=== PATIENT | female | born 2005 | race Caucasian/White ===

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

== ENCOUNTER 2023-01-15 20:04 | Emergency (ER) | payer BC, MEDICAID, SELFPAY ==
[2023-01-15 20:12] VITALS: BP 122/67; PULSE 72; RESP 30; TEMP 36.7; O2SAT 98
--- NOTE | 2023-01-15 20:30 | RT.EKG_ITS ---
APPROVED REPORT Exam: Resting ECG Reason for Exam: L flank, chest pain Patient Location: E HR:84 bpm ECG Measurements Heart Rate 84 AXIS NC 113 P 46 QRSd 96 QRS 19 QT 385 T 31 QTc 455 Conclusion Sinus rhythm...normal P axis, V-rate 60- 99 Low voltage, precordial leads...precordial leads <1.0mV
--- NOTE | 2023-01-15 20:31 | ED.GENADUL_ITS ---
Discharge Plan Disposition Patient Disposition: Home Condition: Improving Discharge Details Clinical Impression: UTI (urinary tract infection) Primary Care Provider: Luna Reyez ED Provider: Jeff Lovell Home Meds and New Rx's Prescriptions: New cephalexin 500 mg capsule 500 mg PO TID 7 Days Qty: 21 0RF Continued albuterol sulfate [ProAir HFA] 8.5 GM HFA aerosol inhaler 2 puff Inhalation Q4H PRN Qty: 2 Rx Instructions: use with spacer, 1 for home and 1 for school (DME) Space Chamber Plus 1 EACH spacer 1 ea Miscellaneous Q4H PRN Qty: 1 Rx Instructions: use with inhaler as needed norgestimate-ethinyl estradiol [Sprintec (28)] 0.25-35 mg-mcg tablet 1 tab PO DAILY Qty: 84 4RF Rx Instructions: Take 1 tablet daily Discharge Instructions Instructions: Urinary Tract Infection in Women (ED) Additional Instructions: Your work-up in the emergency department included blood work, urinalysis and chest x-ray. Home to rest. Tylenol and/or ibuprofen as needed for pain. Take antibiotics as prescribed until finished. Follow-up with regular doctor if not improving in 5 to 7 days time. Return for any acute concerns. 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 She states the pain is worse with deep breath, improved with lying still. She has not had a fever, but will note a dry cough. No urinary symptoms. She arrives to the ER afebrile, oxygenating normally with a pulse of 72 and blood pressure 122/67. She has reproducible left flank pain. Differential diagnosis would include urinary tract infection, pyelonephritis, PE or pneumonia. Patient IV access established, screening labs including D-dimer and screening EKG obtained. EKG unremarkable. Labs reveal a white blood cell count of 8, hematocrit 41, platelets 258. Chemistries unremarkable, D-dimer negative at 167. Chest x-ray obtained with question mild bronchitis. Patient has positive urinary tract infection with leuk esterase. We will start her on a course of antibiotics. She is stable and appropriate for discharge. HPI General Mode of arrival: ambulatory . Date/Time Provider Initiated Documentation: 01/15/23 20:10 . Limitations to Documentation: no limitations . Information obtained by: patient . History of Present Illness 17 year old F presents to the emergency department with the chief complaint of Left flank pain, worse with deep breath, described as moderate, Quality is described as dull and constant, and is localized to the chest and left. Patient reports no radiation. Patient started experiencing this hour(s) and it has been constant. Rest improves symptom(s), Other factors that worsen symptoms (Deep breath) . Patient notes cough (Dry cough); denies fever/chills and shortness of breath. Patient did receive the following treatments prior to arrival, none Related Data Home Medications Medication Instructions Recorded Confirmed albuterol sulfate 90 mcg/actuation 2 puff inhalation Q4H PRN ##2 01/01/17 08/21/22 aerosol inhaler (ProAir HFA) inhalational spacing device (Space ##1 01/01/17 08/21/22 Chamber Plus) norgestimate 0.25 mg-ethinyl 1 tab PO DAILY #84 tabs 04/22/22 08/21/22 estradiol 35 mcg tablet (Sprintec (28)) cephalexin 500 mg capsule 500 mg PO TID 7 days #21 caps 01/15/23 Previous Rx's Medication Instructions Recorded norgestimate 0.25 mg-ethinyl 1 tab PO DAILY #84 tabs 04/22/22 estradiol 35 mcg tablet (Sprintec (28)) cephalexin 500 mg capsule 500 mg PO TID 7 days #21 caps 01/15/23 Allergies Allergy/AdvReac Type Severity Reaction Status Date / Time No Known Allergies Allergy Verified 11/11/22 11:27 General Stated Complaint: Chest/Rib PINA: 3 Review of Systems Narrative: No change to urine. Has dry cough. No fever, no sputum. No leg pain or swelling, no prolonged immobilization. Denies trauma. PFSH All Active Problems (Updated 01/15/23 @ 22:41 by Jeff Lovell MD) UTI (urinary tract infection) (Acute) Dislocation of left patella (Acute) Left breast lump (Acute) Mastodynia (Acute) Vitiligo (Chronic) [place] [facility] [place] Mild intermittent asthma, uncomplicated (Chronic 01/01/17) exercise trigger Medical History Vision problem WEARS GLASSES Family History Other Essential hypertension MGM, MGF Diabetes MGF, MGGM, mat great uncle Personal history of malignant neoplasm maternal-breast Heart disease maternal Hyperlipidemia MGF, MGM Mental disorder maternal/paternal-axiety/depression Myocardial infarction paternal Neoplasm Mat great aunt-breast Mother Mental disorder depression/anxiety Father Mental disorder depression/anxiety Diabetes Type 2 diabetes. Social History Smoking/Tobacco Use Status: Never Smoking risk assessment performed?: Yes Drug use: Never Substance use type: does not use Communication Needs: Corrective Lenses Education Level: high school Details: [employer] Fresh[employer] Pets and animals: Yes (Dogs and a horse) Pets and animals: dog(s) and farm animals Current gender identity: female Do you feel safe at home: Yes Do you feel safe in your relationship?: Yes Additional Social history: lives mostly w/ dads for nights stops in to feed [place] Exam Narrative Exam Narrative: GEN: awake, alert, oriented 3. Pleasant, well groomed, interactive. HEAD: Normocephalic, atraumatic ENT: Mucous membranes moist, oropharynx unremarkable, External ear exam u nremarkable EYES: PERRL, EOMI NECK: Full ROM, no GURU, no menigismus CHEST/RESP: Tender left inferoposterior oh chest/flank. No midline tenderness. No rash., clear to auscultation bilateral, no wheeze/rhonchi/rales CARDIOVASCULAR: RRR, no murmur, rub suellen. 2+ Rad pulse bilateral ABDOMEN: Soft, nontender, no mass. +Bowel sounds EXT: Full ROM, no edema, no rash Neuro: Grossly normal neurologic exam, conversant, interactive. Psych: Speech fluent, thoughts congruent, affect normal Course Vital Signs Vital signs: Vital Signs Temperature 36.7 C 01/15/23 20:12 Pulse 72 01/15/23 20:12 Respiratory Rate 30 H 01/15/23 20:12 Blood Pressure 122/67 01/15/23 20:12 Pulse Oximetry 98 01/15/23 20:12 Temperature 36.7 C 01/15/23 20:12 Pulse 72 01/15/23 20:12 Respiratory Rate 30 H 01/15/23 20:12 Respiratory Effort Short of Breath 01/15/23 20:17 Respiratory Depth Shallow 01/15/23 20:17 Respiratory Pattern Tachypnea 01/15/23 20:17 Blood Pressure 122/67 01/15/23 20:12 Blood Pressure Position Sitting 01/15/23 20:12 Pulse Oximetry 98 01/15/23 20:12 Oxygen Delivery Method Room Air 01/15/23 20:12 Oxygen Flow Rate 0 01/15/23 20:12 Pain Level 4 01/15/23 20:17
[2023-01-15] MEDS: Ketorolac 30 MG/ML VIAL 15 MG IVP (21:35)
[2023-01-15 21:38] LABS: Bilirubin Negative (Negative); Blood Trace-intact (Negative); Clarity Clear (Clear); Glucose Negative (Negative); Ketones Negative (Negative); Leukocyte Esterase Trace (Negative); Nitrite Negative (Negative); Urobilinogen 0.2 EU/dL (Up TO 0.2)
[2023-01-15 21:39] LABS: Bacteria Negative HPF (Negative); C & S Indicated? No; Casts Negative LPF (Negative); Crystals Negative HPF (Negative); Epithelial Cells Few HPF (Negative); Mucus Negative (Negative); Other Cells Negative (Negative); WBC 0-2 HPF (0-5)
[2023-01-15 21:43] LABS: Abs Immature Grans 0.03 10^3/uL (0.0-0.06); Absolute Basophil Count 0.04 10^3/uL (0.0-0.2); Absolute Eosinophil Count 0.19 10^3/uL (0.0-0.7); Absolute Lymphocyte Count 3.49 10^3/uL (1.2-3.4); Absolute Monocyte Count 0.63 10^3/uL (0.1-0.8); Absolute Neutrophil Count 4.12 10^3/uL (1.2-6.7); Basophils % 0.5; Eosinophils % 2.2; HCT 41.6 % (36.0-46.0); HGB 13.7 g/dL (11.2-15.7); Immature Grans % 0.4; Lymphocytes % 41.1; MCHC 32.9 % (32.0-36.0); MCV 88 fL (80-95); MPV 10.1 fL (8.0-11.0); Monocytes % 7.4; Neutrophils % 48.4; Platelet Count 258 10^3/uL (130-400); RBC 4.73 10^6/uL (3.93-5.22); RDW 12.4 % (11.7-14.6); RDW-SD 40.2 fL
[2023-01-15 22:02] LABS: ALT 27 U/L (14-59); AST 17 U/L (15-37); Albumin 4.5 g/dL (3.4-5.0); Alkaline Phosphatase 54 U/L (46-116); BUN 6 mg/dL (7-18); Bilirubin, Total 0.4 mg/dL (0.2-1.0); CREATININE 0.6 mg/dL (0.55-1.02); Calcium 9.5 mg/dL (8.5-10.1); Chloride 102 mmol/L (98-107); Estimated GFR 132.52 (mL/min/1.73m2); Glucose 91 mg/dL (74-106); Potassium 3.9 mmol/L (3.5-5.1); Sodium 140 mmol/L (136-145); Total Protein 7.9 g/dL (6.4-8.2)
[2023-01-15 22:15] LABS: D-Dimer 167 ng/mlFEU (<500)
--- NOTE | 2023-01-15 22:15 | DI.RAD_ITS ---
Exam(s) XR CHEST 2V PA LATERAL EXAM: XR CHEST 2V PA LATERAL CLINICAL HISTORY: Cough. TECHNIQUE: 2D digital imaging was performed. COMPARISON: No exams were available for comparison FINDINGS: 2 views: Heart size is normal. The mediastinum is not widened. Lungs are clear. No infiltrates nor pleural effusions. IMPRESSION: No acute pulmonary findings. DATA REPOSITORY: RADIATION DOSE DELIVERED:
--- NOTE | 2023-01-15 22:44 | DI.VRAD_ITS ---
PROCEDURE INFORMATION: Exam: XR Chest Exam date and time: 01/15/2023 10:36 PM Age: 17 years old Clinical indication: Cough TECHNIQUE: Imaging protocol: Radiologic exam of the chest. Views: 2 views. COMPARISON: No relevant prior studies available. FINDINGS: Lungs: Question mild peribronchial thickening. No consolidation. Pleural spaces: Unremarkable. No pleural effusion. No pneumothorax. Heart/Mediastinum: Unremarkable. No cardiomegaly. Bones/joints: Unremarkable. IMPRESSION: Mild bronchitis not excluded No radiographic evidence for pneumonia Dictated and Authenticated by: Gilberto Pollack MD. Ordering:CRICKET Aguilar MD
[2023-01-15 23:15] VITALS: BP 102/69; PULSE 76; RESP 20; TEMP 36.9; O2SAT 100
== END 2023-01-15 23:44 | disposition home or self-care (01) ==
PROVIDERS: Emergency Provider Emergency Medicine; PCP Nurse Practitioner Pediatrics
DX: N39.0 Urinary tract infection, site not specified (principal); J45.20 Mild intermittent asthma, uncomplicated
CPT/HCPCS: 80053; 81025; 93005; 96374; 99284; 71046; 81003; 81015; 85025; 85379; 93010; 99285; J1885

== ENCOUNTER 2023-08-01 11:21 | Outpatient (REF) | payer BC, SELFPAY | END 2023-08-01 11:22 | disposition home or self-care (01) | LOC: LBN 11:21 | PROVIDERS: PCP Nurse Practitioner Pediatrics; Visit Provider Nurse Practitioner Family | DX: J02.9 Acute pharyngitis, unspecified (principal) | CPT/HCPCS: 87070 ==

== ENCOUNTER 2024-07-03 12:20 | Emergency (ER) | payer BC, SELFPAY ==
[2024-07-03 12:22] VITALS: BP 120/71; PULSE 87; RESP 14; TEMP 37; O2SAT 99
[2024-07-03 12:34] VITALS: BP 120/71; PULSE 87; RESP 14; TEMP 37; O2SAT 99
--- NOTE | 2024-07-03 12:39 | W.ED.GENAD ---
Discharge Plan Disposition Patient Disposition: Home Condition: Good Discharge Details Clinical Impression: UTI (urinary tract infection) Primary Care Provider: Kisha Hutchinson ED Provider: Beto Cho Home Meds and New Rx's Prescriptions: New cephalexin 500 mg capsule 500 mg PO QID 7 Days Qty: 28 0RF No Action albuterol sulfate [ProAir HFA] 8.5 GM HFA aerosol inhaler 2 puff Inhalation Q4H PRN Qty: 2 Rx Instructions: use with spacer, 1 for home and 1 for school (DME) Space Chamber Plus 1 EACH spacer 1 ea Miscellaneous Q4H PRN Qty: 1 Rx Instructions: use with inhaler as needed norgestimate-ethinyl estradiol [Estarylla] 0.25-35 mg-mcg tablet See Rx Instructions .ROUTE .COMPLEX Qty: 84 4RF Dose Instruction: TAKE ONE TABLET BY MOUTH EVERY DAY Rx Instructions: TAKE ONE TABLET BY MOUTH EVERY DAY Discharge Instructions Instructions: Urinary Tract Infection, Adult ED Additional Instructions: At this time you have evidence of mild urinary tract infection. Please take the Keflex as directed. Please drink plenty fluids and take cranberry concentrate. If you notice any worsening of your symptoms, or any new symptoms such as vomiting, diarrhea, fever, chills, shortness of breath, chest pain, numbness, weakness, or fainting , please return immediately to the emergency department for reevaluation. Please follow up with your primary care provider as soon as possible for reassessment and reevaluation. As always, it was a pleasure participating in your medical care today. Referrals: Kisha Hutchinson NP [Primary Care Provider] - [facility] General Date/Time Provider Initiated Documentation: 07/03/24 12:22. HPI Narrative: 19-year-old female with no significant past medical history who is on control, presents today for evaluation of left lower urinary pressure and left flank pain. Patient states that for the last 2 weeks she has had mild pressure in the urinary system, she has had no fever, minimal burning. However over the last 24 to 48 hours she has developed mild pain in the left flank. This is reminds her of her previous urinary tract infection. Patient does have a sexual partner, she does not use protection, however they have not had any history of STDs in the past. She does admit to micturating after every episode of intercourse. She denies vomiting or diarrhea. No vaginal discharge. No other complaints at this time. No other modifying factors. Related Data Home Medications ?Medication ?Instructions ?Recorded ?Confirmed albuterol sulfate 90 mcg/actuation 2 puff inhalation Q4H PRN ##2 01/01/17 07/03/24 aerosol inhaler (ProAir HFA) inhalational spacing device (Space ##1 01/01/17 07/03/24 Chamber Plus) norgestimate 0.25 mg-ethinyl See Rx Instructions .Route 06/19/23 07/03/24 estradiol 35 mcg tablet (Estarylla) .COMPLEX #84 tabs cephalexin 500 mg capsule 500 mg PO QID 7 days #28 caps 07/03/24 Previous Rx's ?Medication ?Instructions ?Recorded norgestimate 0.25 mg-ethinyl See Rx Instructions .Route 06/19/23 estradiol 35 mcg tablet (Estarylla) .COMPLEX #84 tabs cephalexin 500 mg capsule 500 mg PO QID 7 days #28 caps 07/03/24 Allergies Allergy/AdvReac Type Severity Reaction Status Date / Time No Known Allergies Allergy Verified 07/03/24 12:26 General Stated Complaint: Urinary PINA: 3 Review of Systems All systems reviewed & are unremarkable except as noted in HPI and below Exam Narrative Exam Narrative: 1.Const: Well-nourished, Well-developed, appearing stated age 2.Eyes: PERRL, no conjunctival injection, and symmetrical lids. 3.ENT: Atraumatic external nose and ears. Moist MM. Neck: Symmetric, trachea midline, No thyromegaly. 4.CVS: +S1/S2, No murmurs or gallops. Peripheral pulses 2+ and equal in all extremities. Brisk capillary refill in all extremities. 5.RESP: Unlabored respiratory effort. Clear to auscultation bilaterally. No wheezes rales or rhonchi 6.GI: Soft, Nontender/Nondistended, No hepatosplenomegaly. No guarding or rebound. Mild left CVA tenderness. Minimal pressure sensation when palpating the suprapubic region. Minimal achiness there, particularly on the left. No pain to McBurney's point, negative Valladares sign. No evidence of an acute surgical abdomen. 7.MSK: Normocephalic/Atraumatic, Extremities w/o deformity or ttp No cyanosis or clubbing, Normal movement of all extremities 8.Skin: Warm, Dry. No rashes or lesions. 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 Sensation grossly intact, no focal neurologic deficits. 10.Psych: (AAO) x3. Appropriate mood and affect Course Vital Signs Vital signs: Vital Signs Temperature 37.0 C 07/03/24 12:22 Pulse 87 07/03/24 12:22 Respiratory Rate 14 07/03/24 12:22 Blood Pressure 120/71 07/03/24 12:22 Pulse Oximetry 99 07/03/24 12:22 Temperature 37.0 C 07/03/24 12:34 Temperature Source Skin 07/03/24 12:34 Pulse 87 07/03/24 12:34 Respiratory Rate 14 07/03/24 12:34 Respiratory Effort Normal 07/03/24 12:33 Blood Pressure 120/71 07/03/24 12:34 Pulse Oximetry 99 07/03/24 12:34 Oxygen Delivery Method Room Air 07/03/24 12:34 Oxygen Flow Rate 0 07/03/24 12:34 Pain Level 2 07/03/24 12:34 Lab/Test Results Lab/Test Results: POC- Test(urine) Negative Medical Decision Making 19-year-old female with no significant past medical history who is on control, presents today for evaluation of left lower urinary pressure and left flank pain. Patient states that for the last 2 weeks she has had mild pressure in the urinary system, she has had no fever, minimal burning. However over the last 24 to 48 hours she has developed mild pain in the left flank. This is reminds her of her previous urinary tract infection. Patient does have a sexual partner, she does not use protection, however they have not had any history of STDs in the past. She does admit to micturating after every episode of intercourse. She denies vomiting or diarrhea. No vaginal discharge. No other complaints at this time. No other modifying factors. Exam demonstrates well-appearing female, with mild left-sided CVA tenderness, mild suprapubic pain and pressure. No right-sided tenderness. Symptoms are concerning for UTI, less likely interstitial cystitis, pyelonephritis is on the differential. Will get a UA, test, monitor closely and reassess. 1:43 PM Laboratory workup shows evidence of urinary tract infection. Will prescribe Keflex. Discussed red flags for which to return. I have extensively reviewed the treatment plan and discharge instructions with the patient. I have addressed all patient concerns at this time. The patient was made aware of what symptoms to monitor for that would warrant a return to the emergency department. Discussed the plan with the patient, they demonstrate verbal understanding and agreement with our assessment and plan at this time. The documentation in this chart was dictated using [employer] dictation software. Please excuse any dictation errors. Quality:SDOH Health Related Social Needs: No Data to Display [facility] All Active Problems (Updated 07/03/24 @ 13:24 by Beto Cho DO) UTI (urinary tract infection) (Acute) Dislocation of left patella (Acute) Left breast lump (Acute) Mastodynia (Acute) Vitiligo (Chronic) [place] [facility] [place] Mild intermittent asthma, uncomplicated (Chronic 01/01/17) exercise trigger Medical History Vision problem WEARS GLASSES Family History Other Essential hypertension MGM, MGF Diabetes MGF, MGGM, mat great uncle Personal history of malignant neoplasm maternal-breast Heart disease maternal Hyperlipidemia MGF, MGM Mental disorder maternal/paternal-axiety/depression Myocardial infarction paternal Neoplasm Mat great aunt-breast Mother Mental disorder depression/anxiety Father Mental disorder depression/anxiety Diabetes Type 2 diabetes. 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 Pets and animals: Yes (Dogs and a horse) Pets and animals: dog(s) and farm animals Current gender identity: female Do you feel safe at home: Yes Do you feel safe in your relationship?: Yes Additional Social history: live with boyfriend in own home PAWSS Have you Been Recently Intoxicated or Drunk Within the Last 30 days?: No Have you Ever Experienced Previous Episodes of Alcohol Withdrawal?: No Have you ever Experienced Withdrawal Seizures?: No Have you ever Experienced Delirium Tremens(DT)s?: No Have you ever undergone Alcohol Rehabilitation Treatment (i.e, inpt ot outpatient treatment programs)?: No Have you ever Experienced Blackouts?: No Have you ever Combined Alcohol with other Downers within the last 90 days?: No Have you ever Combined Alcohol with any other Substance of Abuse during the last 90 days?: No Result: 0
[2024-07-03 12:58] LABS: Bilirubin Negative (Negative); Blood Trace-intact (Negative); Clarity Cloudy (Clear); Glucose Negative (Negative); Ketones Negative (Negative); Leukocyte Esterase Small (Negative); Nitrite Negative (Negative); Specific Gravity 1.015 (1.005-1.025); Urobilinogen 0.2 mg/dL (Up to 0.2); pH 6.5 (5-8)
[2024-07-03 13:05] LABS: Bacteria Few HPF (Negative); C & S Indicated? No; Casts Negative LPF (Negative); Crystals Negative HPF (Negative); Epithelial Cells Few HPF (Negative); Mucus Negative (Negative)
[2024-07-03] MEDS: Cephalexin 500 MG CAP PO (13:55)
== END 2024-07-03 13:54 | disposition home or self-care (01) ==
LOC: ER 13:56
PROVIDERS: Emergency Provider Student in an Organized Health Care Education/Training Program; PCP Nurse Practitioner Family
DX: M54.50 Low back pain, unspecified (principal); R10.30 Lower abdominal pain, unspecified; N39.0 Urinary tract infection, site not specified
CPT/HCPCS: 81025; 99283; 81003; 81015

== ENCOUNTER 2024-08-16 10:40 | Outpatient (REF) | payer BC, SELFPAY ==
--- NOTE | 2024-08-16 10:20 | PAPFT_PTH ---
PATIENT: Paris Rhodes LOC: [facility] U#:[id number] AGE/SX: 19/F ROOM: RE08/16/[address]: Adela Franks NP : 2005 BED: DIS: 08/16/2024 SPEC #: [id number] RECD: 08/16/24 13:02 STATUS: [place] GRAY #: [id number] [place]: 08/16/24 10:[address]: Adela Franks NP DEPT: [facility] Cytology RECD BY: Cristel Ellison ENTERED: 08/16/24 13:02 SP TYPE: PAPFT OTHR DR: Kisha Hutchinson NP Tissues: 1 - CX/ENDOCX FOR PAP SMEARS Procedures: PAP THIN PREP/[facility] Screening Comments: [id number] (CHLAMYDIA/GC)
[2024-08-17 12:23] LABS: Chlamydia Result Negative (Negative); GC Result Negative (Negative)
== END 2024-08-16 10:41 | disposition home or self-care (01) ==
LOC: LBN 10:40
PROVIDERS: PCP Nurse Practitioner Family; Visit Provider Nurse Practitioner Women's Health
DX: N76.0 Acute vaginitis (principal); Z12.4 Encounter for screening for malignant neoplasm of cervix; Z30.41 Encounter for surveillance of contraceptive pills
CPT/HCPCS: 87491; 87591; 88142; 87480; 87510; 87660

== ENCOUNTER 2025-03-01 16:15 | Outpatient (CLI) | payer OTHER, BC, SELFPAY ==
[2025-03-01 18:52] LABS: HBs Antibody, Quant <3.1 mIU/mL (See Note); Hepatitis B Surface Ab Negative (See Note)
[2025-03-02 12:26] LABS: Measles IgG Antibody Positive (See Note)
[2025-03-02 12:30] LABS: Mumps Antibody IgG Negative (See Note)
[2025-03-02 14:36] LABS: Rubella IgG Ab (UVM) Equivocal (See Note)
[2025-03-03 11:53] LABS: TB Interpretation Negative (Negative); TB1 Ag minus Nil 0.03 IU/mL; TB2 Ag minus Nil 0.09 IU/mL
== END 2025-03-01 16:16 | disposition home or self-care (01) ==
LOC: LBO 16:19
PROVIDERS: PCP Nurse Practitioner Family; Visit Provider Nurse Practitioner Family
DX: Z00.00 Encounter for general adult medical examination without abnormal findings (principal)
CPT/HCPCS: 36415; 86706; 86480; 86735; 86762; 86765

== ENCOUNTER 2025-09-27 21:13 | Outpatient (REF) | payer OTHER, BC, SELFPAY ==
[2025-09-27 21:23] LABS: Glucose Negative (Negative)
[2025-09-27 21:32] LABS: C & S Indicated? No; RBC Negative HPF (0-2)
== END 2025-09-27 21:14 | disposition home or self-care (01) ==
LOC: LBN 21:13
PROVIDERS: PCP Nurse Practitioner Family; Visit Provider Nurse Practitioner Family
DX: R30.0 Dysuria (principal)
CPT/HCPCS: 81003; 81015